=== PATIENT | female | born 2000 | race Caucasian/White ===

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

== ENCOUNTER 2021-02-06 09:04 | Outpatient (REF) | payer OTHER, SELFPAY ==
[2021-02-06 10:15] LABS: COVID-19 Test Negative (Negative); IDNOW Serial# 55D5AD1C
== END 2021-02-06 09:05 | disposition home or self-care (01) ==
LOC: HO.LAB 09:04
PROVIDERS: Visit Provider Internal Medicine
DX: Z20.822 Contact with and (suspected) exposure to COVID-19 (principal)
CPT/HCPCS: 36415; 87635; C9803